=== PATIENT | female | born 1990 | race Caucasian/White ===

== ENCOUNTER 2019-01-15 14:32 | Outpatient (CLI) | payer OTHER | END 2019-01-15 15:20 | disposition home or self-care (01) | LOC: LDOP 14:32 | PROVIDERS: ATTEND Student in an Organized Health Care Education/Training Program | DX: O26.893 Other specified pregnancy related conditions, third trimester (principal); Z3A.30 30 weeks gestation of pregnancy | CPT/HCPCS: 59025; 99211; G0463 ==